=== PATIENT | male | born 1950 | race Caucasian/White ===

== ENCOUNTER 2021-03-17 08:40 | Outpatient (CLI) | payer OTHER, SELFPAY ==
--- NOTE | 2021-03-17 08:45 | MR_ITS ---
WS: [id number] MRI THORACIC SPINE without contrast. HISTORY: RADICULOPATHY COMPARISON: None available. TECHNIQUE: Multiplanar sequences are performed in sagittal and axial planes. Slight increase in the thoracic kyphosis. Multilevel moderate degenerative disc disease throughout th e thoracic spine. No marrow edema or acute fracture. There is a remote 10% compression fracture at T1 . Mild anterior wedging of T7 and T8. T1-2: Mild bilateral foraminal narrowing due to facet disease. T2-3: Small disc osteophyte complex RIGHT foramen with mild RIGHT foraminal narrowing. T3-4: Shallow RIGHT paracentral disc protrusion without stenosis. T4-5: Normal. T5-6: Moderate central disc protrusion with cord contact. T6-7: Small central disc protrusion and bilateral facet joint arthritis. T7-8: Mild bilateral facet arthritis. Mild bilateral foraminal narrowing. T8-9: Moderate RIGHT and mild LEFT foraminal stenosis. T9-10: Moderate to severe bilateral foraminal stenosis predominantly due to facet disease and osteop hytes. T10-11: Mild RIGHT and severe LEFT foraminal stenosis due to disc disease and osteophytes encroachin g towards the thecal sac and foramen. Osteophyte contacts but does not displace the posterior LEFT la teral thoracic cord. T11-12: Mild bilateral facet arthritis and stenosis. No signal abnormality within the thoracic cord. Conus tapers normally ends at L1. MR/MR thoracic spin wo con* [id number] IMPRESSION: 1. No acute fracture or severe central canal stenosis within the thoracic spin e. 2. Remote 10% T1 compression fracture. 3. Multilevel facet joint arthritis resulting in various levels of stenosis wi thin the foramen as above. 4. Severe LEFT foraminal stenosis at T10-11 with an osteophyte encroaching tow ards the thecal sac from the LEFT. 5. Moderate RIGHT foraminal stenosis at T8-9. 6. Moderate to severe bilateral foraminal stenosis at T9-10.
== END 2021-03-17 08:41 | disposition home or self-care (01) ==
PROVIDERS: Visit Provider Family Medicine
DX: M54.14 Radiculopathy, thoracic region (principal); M48.04 Spinal stenosis, thoracic region; M13.88 Other specified arthritis, other site; S22.011A Stable burst fracture of first thoracic vertebra, initial encounter for closed fracture; X58.XXXA Exposure to other specified factors, initial encounter
CPT/HCPCS: 72146

== ENCOUNTER 2021-03-27 08:30 | Outpatient (CLI) | payer OTHER, SELFPAY ==
--- NOTE | 2021-03-27 08:38 | MR_ITS ---
WS: [id number] MRI LUMBAR SPINE NONCONTRAST HISTORY: RADICULOPATHY W/DIFFICULTY STANDING AND WALKING COMPARISON: None available. TECHNIQUE: Sagittal and axial multisequence imaging is submitted. Mild spondylitic disease identified in the cervical spine. Slight disc bulging at T5-6 and T8-9. Mild LEFT lumbar curvature. 2 mm retrolisthesis of L3. No marrow edema. There is mild disc desiccation and mild narrowing throughout the lumbar spine. Conus terminates normally at L1. L1-L2: Normal. L2-L3: Mild annular disc bulging with a central disc protrusion. Mild ligamentum flavum and facet art hritis. Mild central with bilateral subarticular recess and foraminal stenosis. Slightly greater encr oachment upon the LEFT L3 nerve root. L3-L4: Mild annular disc bulging and osteophytic ridging. There is a focal central to RIGHT paracentr al disc protrusion and annular fissure. There is disc encroachment into the lateral recesses and suba rticular foramen. Mild bilateral foraminal stenosis. L4-L5: Moderate disc bulging with facet joint arthritis and osteophytosis. There is severe central, b ilateral lateral recess, subarticular recesses and moderate to severe bilateral foraminal stenosis. L5-S1: Mild annular disc bulging with a shallow LEFT paracentral disc protrusion not contacting the n erve roots. Bilateral facet joint arthritis with fluid in the facet joints. Mild bilateral foraminal stenosis, LEFT greater than RIGHT. MR/MR lumbar spine wo con* [id number] IMPRESSION: 1. Severe central, bilateral lateral recess and subarticular recess stenosis w ith moderate to severe bilateral foraminal stenosis at L4-5. Stenoses due to co mbination of disc disease and osteophytosis and facet arthritis. 2. Mild central and bilateral foraminal stenosis with disc encroachment into t he lateral recesses and subarticular foramen at L3-4. Disc contacts the L4 nerv e roots bilaterally. 3. Mild central and bilateral lateral recess and foraminal stenosis at L2-3. 4. Mild bilateral foraminal stenosis at L5-S1. LEFT greater than RIGHT.
--- NOTE | 2021-03-27 08:47 | MR_ITS ---
WS: [id number] MRI CERVICAL SPINE NONCONTRAST HISTORY: RADICULOPATHY COMPARISON: None available. Technique: Multiplanar, multisequence noncontrast imaging of the cervical spine. Very slight increase in the cervical lordosis. There is mild to moderate diffuse disc space narrowing throughout the cervical spine. Nonacute 10% compression fracture at T1. There is a small amount of m arrow edema along the inferior endplate of C3. Signal within the cervical cord is normal. Visualized posterior fossa is unremarkable. Craniocervical junction, C1 and C2 relationship, odontoid process and soft tissues are normal. C2-C3: Tiny central disc protrusion. C3-C4: Diffuse annular disc bulge with a central moderate disc protrusion. Bilateral disc osteophyte complexes extend into the foramen. Mild central and bilateral foraminal stenosis. C4-C5: Mild annular disc bulging with a central disc protrusion. Disc osteophyte complexes extend int o the foramen causing moderate RIGHT and mild LEFT foraminal stenosis. C5-C6: Moderate osteophytic ridging with associated disc bulging. Osteophyte encroaches upon the vent ral thecal sac causing moderate central with severe RIGHT and moderate LEFT foraminal stenosis. C6-C7: Diffuse annular disc bulging and osteophytic ridging. Shallow central disc protrusion. There i s an additional moderate size disc protrusion in the LEFT foramen with significant encroachment and s light displacement of the nerve roots. Mild central with moderate bilateral foraminal stenosis. C7-T1: Very mild foraminal narrowing. Paraspinal soft tissue are normal. MR/MR cervical spin wo con* [id number] IMPRESSION: 1. Multilevel central and foraminal stenoses. Stenoses due to combination of d isc protrusions, osteophytic ridging and disc osteophyte complexes. 2. Moderate central with severe RIGHT and moderate LEFT foraminal stenosis at C5-6. 3. Mild central with moderate bilateral foraminal stenosis at C6-7. 4. Moderate RIGHT and mild LEFT foraminal stenosis at C4-5 with a small centra l disc protrusion with only mild central stenosis. 5. Mild central and bilateral foraminal stenosis at C3-4. 6. Remote T1, 10 %compression fracture.
== END 2021-03-27 08:31 | disposition home or self-care (01) ==
LOC: RADSHAW 08:33
PROVIDERS: Visit Provider Family Medicine
DX: M54.12 Radiculopathy, cervical region (principal); M54.16 Radiculopathy, lumbar region; S22.018A Other fracture of first thoracic vertebra, initial encounter for closed fracture; M48.02 Spinal stenosis, cervical region; M48.07 Spinal stenosis, lumbosacral region; M48.061 Spinal stenosis, lumbar region without neurogenic claudication; X58.XXXA Exposure to other specified factors, initial encounter
CPT/HCPCS: 72141; 72148

== ENCOUNTER → 2021-09-01 11:08 | Outpatient (BNVA) | payer OTHER, SELFPAY | PROVIDERS: Referring Provider Family Medicine; Visit Provider Specialist | DX: M79.7 Fibromyalgia (principal); G62.9 Polyneuropathy, unspecified; M50.30 Other cervical disc degeneration, unspecified cervical region; M51.34 Other intervertebral disc degeneration, thoracic region; M48.061 Spinal stenosis, lumbar region without neurogenic claudication; M54.16 Radiculopathy, lumbar region | CPT/HCPCS: 20550; 20552; 99204; 99205; J1030; J3490 ==

== ENCOUNTER → 2021-10-06 14:46 | Outpatient (BNVA) | payer MEDICARE, OTHER, SELFPAY | PROVIDERS: Referring Provider Specialist; Visit Provider Specialist | DX: G62.89 Other specified polyneuropathies (principal) | CPT/HCPCS: 95909 ==

== ENCOUNTER → 2021-11-25 13:07 | Outpatient (BNVA) | payer MEDICARE, OTHER, SELFPAY | PROVIDERS: Visit Provider Specialist | DX: G62.9 Polyneuropathy, unspecified (principal); M48.061 Spinal stenosis, lumbar region without neurogenic claudication; M50.90 Cervical disc disorder, unspecified, unspecified cervical region; M51.9 Unspecified thoracic, thoracolumbar and lumbosacral intervertebral disc disorder | CPT/HCPCS: 99214 ==